=== PATIENT | male | born 1950 | race Caucasian/White ===

== ENCOUNTER 2023-09-30 05:10 | Day surgery (SDC) | payer OTHER ==
[~2023-09-30 05:10] MED LIST: PROAIR RESPICL90 MCG
[2023-09-30] MEDS ORDERED: BUPIVACAINE HCL/PF 0.25% 30ML VIAL InF ONE (06:50)
[2023-09-30] MEDS ORDERED: LIDOCAINE HCL 1%/Epi 20ML VIAL IJ ONE ×2 (06:50→07:30)
[2023-09-30] MEDS ORDERED: CEFTRIAXONE SODIUM 2,000 MG VIAL ONE (06:50)
[2023-09-30] MEDS ORDERED: METRONIDAZOLE/SODIUM CHLORIDE 500 MG/100 ML PIGGYBACK IV ONE ×2 (06:50→07:30)
[2023-09-30] MEDS ORDERED: POVIDONE-IODINE 118 ML BOTT TOP ONE ×2 (06:50→07:30)
[2023-09-30] MEDS ORDERED: DIBUCAINE 15 GM OINT..GM. TUBE ONE (06:50)
[2023-09-30] MEDS ORDERED: HEMOSTATIC MATRIX 1 KIT KIT TOP ONE ×2 (06:50→07:30)
[2023-09-30] MEDS ORDERED: DIBUCAINE 30 GM TUBE RECTAL ONE (07:30)
[2023-09-30] MEDS ORDERED: BUPIVACAINE HCL 30 ML VIAL IJ ONE (07:30)
[2023-09-30] MEDS ORDERED: CEFTRIAXONE SODIUM 2,000 MG VIAL IV ONE (07:30)
[2023-09-30] MEDS ORDERED: OXYC1TAB9 PO (08:17)
[2023-09-30] MEDS ORDERED: TAMSULOSIN HCL 0.4 MG CAP PO ONE ×2 (08:30→12:38)
== END 2023-09-30 13:50 | disposition home or self-care (01) ==
LOC: CIR.AMB 05:10
PROVIDERS: ATTEND Surgery
DX: K64.2 Third degree hemorrhoids (principal); K64.4 Residual hemorrhoidal skin tags; Z20.822 Contact with and (suspected) exposure to COVID-19

== ENCOUNTER 2023-10-15 11:26 | Emergency (ER) | payer OTHER ==
[~2023-10-15] VITALS: Ht 167.6 cm; Wt 72.6 kg
[~2023-10-15 11:26] MED LIST changes: +OXYC1TAB9 PO
[2023-10-15] MEDS ORDERED: IPRATROPIUM BROMIDE 0.5 MG/2.5 ML AMPUL.NEB IH STA (13:17)
[2023-10-15] MEDS ORDERED: LEVALBUTEROL HCL 1.25 MG/3 ML SOLUTION IH STA (13:17)
[2023-10-15] MEDS ORDERED: METHYLPREDNISOLONE SOD SUCC 125 MG VIAL IV STA (13:18)
[2023-10-15 13:55] LABS: HEMATOCRIT 32.1 % (39.0-48.0); HEMOGLOBIN 11.2 g/dL (13-16.00); MEAN CELL VOLUME 92.9 fL (80.0-100.00); MEAN CORPUSCULAR HEMOGLOBIN 32.3 pg (27.00-32.0); MEAN CORPUSCULAR HGB CONC 34.8 g/dl (32.0-36.0); PLATELET COUNT 235 K/uL (150-450); RED BLOOD COUNT 3.45 M/uL (4.00-6.00); RED CELL DISTRIBUTION WIDTH 14.2 % (11.5-14.5)
[2023-10-15 14:13] LABS: CALCIUM 8.6 mg/dL (8.5-10.1); CREATININE SERUM 0.93 mg/dL (0.70-1.30); GFR 79.64; POTASSIUM 4.34 mEq/L (3.5-5.1)
== END 2023-10-15 15:57 | disposition home or self-care (01) ==
LOC: ER 11:26
PROVIDERS: General Practice
DX: J44.9 Chronic obstructive pulmonary disease, unspecified (principal); K62.5 Hemorrhage of anus and rectum
CPT/HCPCS: 36415; 94640; 96365; 99283; J2930